=== PATIENT | male | born 1980 | race Caucasian/White ===

== ENCOUNTER 2017-10-29 09:52 | Emergency (ER) | payer OTHER ==
[~2017-10-29] VITALS: Ht 180.3 cm; Wt 111.9 kg
[2017-10-29] MEDS ORDERED: ROBAXIN750 MG PO (13:05)
[2017-10-29 13:41] VITALS: BP 137/93
== END 2017-10-29 13:42 | disposition home or self-care (01) ==
LOC: EME 09:52
DX: S06.0X0A Concussion without loss of consciousness, initial encounter (principal); M54.12 Radiculopathy, cervical region; S80.12XA Contusion of left lower leg, initial encounter; V49.40XA Driver injured in collision with unspecified motor vehicles in traffic accident, initial encounter; Y92.410 Unspecified street and highway as the place of occurrence of the external cause; F32.9 Major depressive disorder, single episode, unspecified
CPT/HCPCS: 72125; 73590; 99281; 99285